=== PATIENT | female | born 1985 | race Caucasian/White ===

== ENCOUNTER 2016-06-11 03:14 | Emergency (ER) | payer MEDICAID ==
[~2016-06-11] VITALS: Ht 167.6 cm; Wt 130.0 kg
[~2016-06-11 03:14] MED LIST: ALPR0.25 PO; BUPR100T6 PO; BUPR200T PO; BUSBAR; BUSP10TA PO; BUSP5TAB2 PO; CARV3.1212 PO; CARV3.122 PO; CLON1TAB23 PO; DIVA500T4 PO; DIVA500T9 PO; GABA300C10 PO; GLYB1TAB9 PO; GLYB5TAB3 PO; HYDR-3342 PO; INSU100C SQ-INSULIN; INSU100I13 SQ; LEVO175T5 PO; LEVO200T PO; LISI40TA PO; LURA120T PO; LURA80TA PO; METF10002 PO; MIRT15TA4 PO; NORT50CA PO; OXYB5TAB7 PO; OXYC-229 PO; QUET400T4 PO; SITA50TA PO; WELLBUTRIN; ZOLP-413 PO
[2016-06-11 04:10] VITALS: BP 127/88
== END 2016-06-11 04:34 | disposition home or self-care (01) ==
LOC: ED 03:45
DX: M79.661 Pain in right lower leg (principal); M79.662 Pain in left lower leg; G89.29 Other chronic pain; F10.10 Alcohol abuse, uncomplicated; E11.9 Type 2 diabetes mellitus without complications; I10 Essential (primary) hypertension; R73.9 Hyperglycemia, unspecified; F41.1 Generalized anxiety disorder
CPT/HCPCS: 99283

== ENCOUNTER 2016-07-14 14:48 | Emergency (ER) | payer MEDICAID ==
[~2016-07-14] VITALS: Ht 167.6 cm; Wt 122.9 kg
[2016-07-14 14:56] VITALS: BP 102/72
== END 2016-07-14 15:44 | disposition home or self-care (01) ==
LOC: ED 15:35
DX: L02.214 Cutaneous abscess of groin (principal); E11.9 Type 2 diabetes mellitus without complications; I10 Essential (primary) hypertension; E66.9 Obesity, unspecified; F41.1 Generalized anxiety disorder; G35 Multiple sclerosis; F17.200 Nicotine dependence, unspecified, uncomplicated; F12.10 Cannabis abuse, uncomplicated; Z85.850 Personal history of malignant neoplasm of thyroid
CPT/HCPCS: 99282

== ENCOUNTER 2016-07-21 13:43 | Emergency (ER) | payer MEDICAID ==
[~2016-07-21] VITALS: Ht 170.2 cm; Wt 120.0 kg
[~2016-07-21 13:43] MED LIST changes: +GLYB1TAB13 PO; -GLYB1TAB9 PO
[2016-07-21] MEDS ORDERED: SODIUM CHLORIDE 0.9% 1,000ML IVBOLUS ONE (14:00)
[2016-07-21] MEDS ORDERED: INSULIN REGULAR 100 UNITS/ML, 3ML VIAL IVPush SCH (14:00)
[2016-07-21 14:23] LABS: PH, VENOUS 7.409 pH (7.320-7.420)
[2016-07-21 14:25] VITALS: BP 153/81
[2016-07-21 14:34] LABS: BLOOD UREA NITROGEN 10 mg/dL (7-18)
[2016-07-21 14:35] LABS: ASPARTATE AMINO TRANSFERASE 34 U/L (15-37)
[2016-07-21] MEDS ORDERED: INSULIN SINGLE DOSE, ER SQ-INSULIN ONE (15:11)
== END 2016-07-21 16:08 | disposition home or self-care (01) ==
LOC: ED 15:30
DX: E11.65 Type 2 diabetes mellitus with hyperglycemia (principal); I10 Essential (primary) hypertension; R11.2 Nausea with vomiting, unspecified; R51 Headache
CPT/HCPCS: 36415; 80053; 82010; 82803; 82962; 85025; 96361; 96374; 99284; J7030

== ENCOUNTER 2016-07-29 11:30 | Emergency (ER) | payer MEDICAID ==
[~2016-07-29] VITALS: Ht 167.6 cm; Wt 123.0 kg
[2016-07-29] MEDS ORDERED: SODIUM CHLORIDE 0.9% 1,000 ML IV ONE (12:09)
[2016-07-29] MEDS ORDERED: SODIUM CHLORIDE 0.9% 1,000ML IVBOLUS ONE (12:30)
[2016-07-29] MEDS ORDERED: SODIUM CHLORIDE FLUSH 10ML SYR IVF ONE (12:30)
[2016-07-29] MEDS ORDERED: PHARMACOKINETIC CONSULTATION MC ONE (12:30)
[2016-07-29] MEDS ORDERED: VANCOMYCIN PER PHARMACY IV ONE (12:30)
[2016-07-29 12:40] LABS: BLOOD UREA NITROGEN 15 mg/dL (7-18)
[2016-07-29] MEDS ORDERED: VANCOMYCIN 2,000 MG in SODIUM CHLORIDE 0.9% 500 ML IV ONE (13:00)
[2016-07-29] MEDS ORDERED: IBUPROFEN 200 MG TABLET ONE (14:56)
[2016-07-29] MEDS ORDERED: IBUPROFEN 800 MG TABLET PO ONE (15:00)
[2016-07-29] MEDS ORDERED: IBUPROFEN 200 MG TABLET PO ONE (15:01)
[2016-07-29 15:06] VITALS: BP 138/80
== END 2016-07-29 15:07 | disposition home or self-care (01) ==
LOC: ED 13:41
DX: L02.214 Cutaneous abscess of groin (principal); E11.9 Type 2 diabetes mellitus without complications; E66.01 Morbid (severe) obesity due to excess calories; Z68.23 Body mass index [BMI] 23.0-23.9, adult
CPT/HCPCS: 10060; 36415; 76882; 80048; 82040; 85025; 96365; 96366; 99285; J3370; J7030; J7040

== ENCOUNTER 2016-08-29 03:46 | Emergency (ER) | payer MEDICAID ==
[~2016-08-29] VITALS: Ht 167.6 cm; Wt 110.0 kg
[2016-08-29 05:23] VITALS: BP 130/78
== END 2016-08-29 05:46 | disposition home or self-care (01) ==
LOC: ED 05:38
DX: F10.120 Alcohol abuse with intoxication, uncomplicated (principal); E11.9 Type 2 diabetes mellitus without complications; I10 Essential (primary) hypertension; Z86.14 Personal history of Methicillin resistant Staphylococcus aureus infection; Z88.6 Allergy status to analgesic agent; F19.10 Other psychoactive substance abuse, uncomplicated
CPT/HCPCS: 99283

== ENCOUNTER 2017-02-24 17:16 | Emergency (ER) | payer SELFPAY ==
[~2017-02-24 17:16] MED LIST changes: +DIVA-68 PO; -DIVA500T9 PO; -OXYC-229 PO; +OXYC-307 PO
[2017-02-24 17:56] VITALS: BP 129/59
[2017-02-24 18:30] LABS: HEMATOCRIT 40.2 % (34.6-47.8); HEMOGLOBIN 13.6 g/dL (11.7-16.4); WHITE BLOOD COUNT 11.8 x10^3/uL (3.4-10)
[2017-02-24 18:31] LABS: ASPARTATE AMINO TRANSFERASE 18 U/L (15-37); BLOOD UREA NITROGEN 23 mg/dL (7-18)
[2017-02-24 18:39] LABS: ACETAMINOPHEN < 2 mcg/mL (10-30)
== END 2017-02-24 20:30 | disposition home or self-care (01) ==
LOC: ED 17:43
DX: F23 Brief psychotic disorder (principal); F41.1 Generalized anxiety disorder; E03.9 Hypothyroidism, unspecified; E11.65 Type 2 diabetes mellitus with hyperglycemia; N28.9 Disorder of kidney and ureter, unspecified; I10 Essential (primary) hypertension; E66.9 Obesity, unspecified; Z79.4 Long term (current) use of insulin
CPT/HCPCS: 36415; 80053; 80307; 80329; 84443; 84703; 85025; 99284; G0479; G0480

== ENCOUNTER 2018-10-25 05:01 | Emergency (ER) | payer MEDICARE ==
[~2018-10-25] VITALS: Ht 167.6 cm; Wt 96.5 kg
[~2018-10-25 05:01] MED LIST changes: +DIVA-61 PO; -DIVA-68 PO; +GLYB-137 PO; -GLYB1TAB13 PO; +MIRT-34 PO; -MIRT15TA4 PO; -NORT50CA PO; +NORT50CA52 PO
[2018-10-25] MEDS ORDERED: KETOROLAC 30 MG/1 ML IM ONE (05:30)
[2018-10-25] MEDS ORDERED: KETOROLAC 30 MG/1 ML ONE (05:42)
--- NOTE | 2018-10-25 05:54 | NUR ---
Pt medicated per MAR for pain. Warm blankets given. Awaiting labs. No further needs expressed.
--- NOTE | 2018-10-25 06:35 | NUR ---
Pt sleeping with resp even and unlabored. VSS. Awaiting test results.
[2018-10-25 06:42] LABS: MEAN CORPUSCULAR HEMOGLOBIN 31.2 pg (27.0-34.8); MEAN CORPUSCULAR HGB CONC 35.6 g/dL (32.4-35.8); MEAN CORPUSCULAR VOLUME 87.4 fL (80-100); MEAN PLATELET VOLUME 7.8 fL (7.4-10.4); PLATELET COUNT 470 x10^3/uL (130-400); RED BLOOD COUNT 4.02 x10^6/uL (3.82-5.3)
[2018-10-25 06:43] LABS: BASOPHILS # (AUTO) 0.11 x10^3/uL (0-0.1); BASOPHILS % (AUTO) 1 % (0-1); EOSINOPHILS # (AUTO) 0.49 x10^3/uL (0-0.4); EOSINOPHILS % (AUTO) 4 % (1-7); LYMPHOCYTES # (AUTO) 4.45 x10^3/uL (1-3.4); LYMPHOCYTES % (AUTO) 35 % (22-44); MD SCAN; MONOCYTES # (AUTO) 0.51 x10^3/uL (0.2-0.8); MONOCYTES % (AUTO) 4 % (2-9); NEUTROPHILS # (AUTO) 7.22 x10^3/uL (1.8-6.8); NEUTROPHILS % (AUTO) 57 % (42-75)
--- NOTE | 2018-10-25 06:51 | NUR ---
BEDSIDE REPORT FROM MICHAEL MACE. PT SLEEPING IN [facility], NO NEEDS AT THIS TIME. AWAITING LAB RESULTS.
--- NOTE | 2018-10-25 07:52 | NUR ---
PT SLEEPING IN [facility], NO NEEDS AT THIS TIME. CALL LIGHT WITHIN REACH. LAB TO REDRAW CHEMISTRY
[2018-10-25 08:11] LABS: ANION GAP 13 mmol/L (5-15); CALCIUM 8.6 mg/dL (8.5-10.1); CHLORIDE 105 mmol/L (98-107)
[2018-10-25 08:24] VITALS: BP 132/92
--- NOTE | 2018-10-25 08:37 | NUR ---
PT SLEEPING IN GURNEY, NO NEEDS AT THIS TIME. CALL LIGHT WITHIN REACH. PT UP FOR RECHECK
--- NOTE | 2018-10-25 08:49 | NUR ---
pt ambulated to bathroom with steady gait
== END 2018-10-25 09:14 | disposition home or self-care (01) ==
LOC: ED 05:38
DX: G89.29 Other chronic pain (principal); M54.5 Low back pain; E03.9 Hypothyroidism, unspecified; Z86.14 Personal history of Methicillin resistant Staphylococcus aureus infection; Z72.9 Problem related to lifestyle, unspecified; E11.9 Type 2 diabetes mellitus without complications; I10 Essential (primary) hypertension; F41.1 Generalized anxiety disorder
CPT/HCPCS: 36415; 80048; 85025; 96372; 99283; J1885